=== PATIENT | male | born 1960 | race Caucasian/White ===

== ENCOUNTER 2017-03-29 12:42 | Outpatient (CLI) | payer BC ==
[2017-03-29 13:25] LABS: Bilirubin Negative (Negative); Blood, Urine Negative (Negative); Glucose, Urine (Dipstick) Negative (Negative); Ketone, Urine Negative (Negative); Nitrite Negative (Negative); Protein, Urine (Dipstick) Negative (Neg-Trace); Urobilinogen 0.2 mg/dL (0.2-1.0)
--- NOTE | 2017-03-29 15:57 | RAD ---
SUPINE AP ABDOMINAL RADIOGRAPH 03/29/17 HISTORY: Urinary calculi. COMPARISON: 10/15/13. FINDINGS: Calcifications overlie the left upper quadrant which may be related the splenic granulomata. There i s a linear calcification seen overlying the inferior pole right renal shadow which may represent a s mall renal calculus. No additional suspicious calcifications are seen. Bowel gas pattern is nonspeci fic. No other interval change. IMPRESSION: 1. Suggestion of right nephrolithiasis. 2. No additional suspicious calcifications are appreciated. POS: REJI
== END 2017-03-29 12:43 | disposition home or self-care (01) ==
LOC: RAD 12:42
PROVIDERS: ATTEND Urology
DX: Z12.5 Encounter for screening for malignant neoplasm of prostate (principal); N40.1 Benign prostatic hyperplasia with lower urinary tract symptoms; R35.0 Frequency of micturition; Z87.442 Personal history of urinary calculi
CPT/HCPCS: 74000; 81003; 87086; G0103

== ENCOUNTER 2017-04-18 14:06 | Outpatient (CLI) | payer BC ==
--- NOTE | 2017-04-18 15:45 | ULT ---
BILATERAL RENAL SONOGRAM: Date: 04/18/17 HISTORY: Urinary frequency. FINDINGS: There is a hyperechoic focus seen within the mid portion of the left kidney, which measures approxima tely 7.0 mm. This does not demonstrate posterior shadowing to suggest that this represents a calculus . This also appears cortically based. This may potentially represent a prominent vessel in this regio n. There is no hydronephrosis or renal mass seen involving the kidneys bilaterally. No perinephric fl uid collection is seen. Right kidney measures 11.0 cm x 5.9 cm and left kidney measures 10.7 cm x 6.4 cm. Urinary bladder is partially demonstrated and demonstrates a normal sonographic appearance. IMPRESSION: Small, subcentimeter, hyperechoic focus which appears cortically based within the mid portion of the left kidney. This does not definitely demonstrate shadowing to suggest a calculus and may represent p rominent vessel in this region. There is no hydronephrosis bilaterally, and the kidneys otherwise hav e a normal sonographic appearance. POS: REJI
== END 2017-04-18 14:07 | disposition home or self-care (01) ==
LOC: ULT 14:06
PROVIDERS: ATTEND Urology
DX: R35.0 Frequency of micturition (principal); N28.89 Other specified disorders of kidney and ureter; Z87.442 Personal history of urinary calculi
CPT/HCPCS: 76770